=== PATIENT | female | born 1950 | race Caucasian/White ===

== ENCOUNTER 2018-07-09 05:10 | Day surgery (SDC) | payer MEDICARE, OTHER ==
[2018-07-09] MEDS ORDERED: FAMOTIDINE 20 MG/2 ML VIAL ONE (07:32)
[2018-07-09] MEDS ORDERED: LACTATED RINGERS 1,000 ML IV ONE (07:32)
[2018-07-09] MEDS ORDERED: GLYCOPYRROLATE 0.2 MG/1 ML 1 ML ONE (08:48)
[2018-07-09] MEDS ORDERED: LACTATED RINGERS 1,000 ML IV.SOLN IV ONE (08:48)
[2018-07-09] MEDS ORDERED: ROCURONIUM BROMIDE 10 MG/ML 5ML VIAL ONE (08:48)
[2018-07-09] MEDS ORDERED: ONDANSETRON HCL/PF 4 MG/ 2ML VIAL ONE (08:48)
[2018-07-09] MEDS ORDERED: PROPOFOL 200 MG/20 ML VIAL IV ONE (08:48)
[2018-07-09] MEDS ORDERED: NEOSTIGMINE METHYLSULFATE 10 MG/10 ML VIAL ONE (08:48)
[2018-07-09] MEDS ORDERED: ceFAZolin SODIUM 1 GM VIAL ONE (08:48)
[2018-07-09] MEDS ORDERED: DEXAMETHASONE SOD PHOS 4 MG/ML VIAL ONE (08:48)
[2018-07-09] MEDS ORDERED: MIDAZOLAM HCL 2 MG/2 ML VIAL ONE (10:13)
[2018-07-09] MEDS ORDERED: FENTANYL CITRATE/PF 250 MCG/5 ML INJ. ONE (10:13)
[2018-07-09] MEDS ORDERED: oxyCODONE/ACETAMINOPHEN 5/325 TABLET PO ONE ×2 (15:06→15:10)
[2018-07-09] MEDS ORDERED: oxyCODONE HCL 5 MG TABLET ONE (15:06)
== END 2018-07-09 15:56 ==
LOC: OPSURG 05:10
PROVIDERS: ATTEND Orthopaedic Surgery
DX: M50.222 Other cervical disc displacement at C5-C6 level (principal); M48.02 Spinal stenosis, cervical region; E03.9 Hypothyroidism, unspecified; Z51.81 Encounter for therapeutic drug level monitoring
CPT/HCPCS: 22856; 84443; J0690; J1100; J2250; J2405; J2704; J2710; J3490; A9270-GY; C1889; J7120